=== PATIENT | male | born 1950 | race Hispanic/Latino ===

== ENCOUNTER 2023-10-06 08:24 | Emergency (ER) | payer OTHER, MEDICARE ==
[~2023-10-06] VITALS: Ht 160 cm; Wt 86.2 kg
[2023-10-06 08:45] LABS: BILIRUBIN,URINE NEGATIVE (NEGATIVE); COLOR,URINE LIGHT-YELLOW (YELLOW); GLUCOSE, URINE (UA) 30 mg/dL (NEGATIVE); KETONES,URINE NEGATIVE (NEGATIVE); LEUKOCYTE ESTERASE ,URINE 500 Leu/uL (NEGATIVE); NITRATE,URINE NEGATIVE (NEGATIVE); OCCULT BLOOD,URINE SMALL (NEGATIVE); PROTEIN,URINE 70 mg/dL (NEGATIVE); UROBILINOGEN,URINE 0.2 mg/dL (0.2-1.0)
[2023-10-06 08:49] LABS: ADD UA MICROSCOPIC YES; APPEARANCE,URINE HAZY (CLEAR)
[2023-10-06 08:54] LABS: BACTERIA,URINE FEW /HPF (None Seen); MUCUS,URINE RARE LPF (None Seen); RBC,URINE >100 /HPF (0-1); WBC CLUMP MOD /HPF (0-1); WBC,URINE TNTC /HPF (0-1); YEAST,URINE BUDDING MOD /HPF (None Seen)
[2023-10-06 08:59] LABS: BASOPHILS # (AUTO) 0.04 K/uL (0.00-0.20); BASOPHILS % (AUTO) 0.3 % (0.0-5.0); EOSINOPHILS # (AUTO) 0.22 K/uL (0.00-0.70); EOSINOPHILS % (AUTO) 1.9 % (0.0-8.0); HEMATOCRIT 35.9 % (42-54); IMMATURE GRANULOCYTE ABSOLUTE 0.03 K/uL (0-1); LYMPHOCYTES # (AUTO) 1.2 K/uL (1.0-4.8); LYMPHOCYTES % (AUTO) 10.3 % (21.0-51.0); MEAN CORPUSCULAR HEMOGLOBIN 28.5 pg (27.0-33.0); MEAN CORPUSCULAR VOLUME 83.9 fL (79-99); MONOCYTES # (AUTO) 0.6 K/uL (0.1-1.0); MONOCYTES % (AUTO) 4.9 % (3.0-13.0); NEUTROPHILS # (AUTO) 9.8 K/uL (1.8-7.7); NEUTROPHILS % (AUTO) 82.3 % (40.0-77.0); PLATELET COUNT (AUTO) 232 K/uL (130-400); RED BLOOD CELL COUNT(AUTO) 4.28 MIL/uL (4.50-6.20); RED CELL DISTRIBUTION WIDTH 12.6 % (11.0-15.5); WHITE BLOOD COUNT (AUTO) 11.9 K/uL (4.8-10.8)
[2023-10-06] MEDS ORDERED: CLOTRIMAZOLE/BETAMETHASONE DIP 45 GM CREAM.GM. TP ONE (09:00)
[2023-10-06 09:20] LABS: CREATININE 2.9 mg/dL (0.5-1.3); POTASSIUM 4.5 mmol/L (3.5-5.1)
[2023-10-06 09:24] LABS: BILIRUBIN,TOTAL 0.3 mg/dL (0.2-1.0); MAGNESIUM 1.9 mg/dL (1.80-2.40); TOTAL PROTEIN, SERUM 6.8 g/dL (6.0-8.3)
[2023-10-06] MEDS: CEFTRIAXONE 1G VIAL IVPB ONE (10:03)
[2023-10-06] MEDS ORDERED: CEFU250T87 PO (11:03)
[2023-10-06] MEDS ORDERED: CLOT15CR5 TP (11:05)
[2023-10-06 13:04] VITALS: BP 128/70; PULSE 55; RESP 16; O2SAT 95
== END 2023-10-06 13:04 | disposition home or self-care (01) ==
LOC: EDH 08:24 → EDBD 08:24 → EDH 13:04
DX: T83.090A Other mechanical complication of cystostomy catheter, initial encounter (principal); N39.0 Urinary tract infection, site not specified; R07.89 Other chest pain; E11.22 Type 2 diabetes mellitus with diabetic chronic kidney disease; N18.9 Chronic kidney disease, unspecified; X58.XXXA Exposure to other specified factors, initial encounter; Y93.89 Activity, other specified; Y92.89 Other specified places as the place of occurrence of the external cause; Y99.8 Other external cause status
CPT/HCPCS: 99285; 96365; 71045; 83735; 84484 ×3; 80053; 85025; 87040 ×2; 87077; 87088; 87186; 83605; 81001; 36415; 51702; 93005; J0696

== ENCOUNTER 2024-02-28 04:58 | Observation (INO) | payer OTHER, MEDICARE ==
[~2024-02-28] VITALS: Ht 162.6 cm; Wt 91.6 kg
[~2024-02-28 04:58] MED LIST: CEFU250T87 PO; CLOT15CR5 TP
[2024-02-28 06:06] LABS: CREATININE 3.9 mg/dL (0.5-1.3); POTASSIUM 4.6 mmol/L (3.5-5.1)
[2024-02-28 06:08] LABS: APPEARANCE,URINE TURBID (CLEAR); BILIRUBIN,URINE NEGATIVE (NEGATIVE); GLUCOSE, URINE (UA) NEGATIVE (NEGATIVE); KETONES,URINE NEGATIVE (NEGATIVE); LEUKOCYTE ESTERASE ,URINE 500 Leu/uL (NEGATIVE); NITRATE,URINE NEGATIVE (NEGATIVE); OCCULT BLOOD,URINE MODERATE (NEGATIVE); PROTEIN,URINE 300 mg/dL (NEGATIVE); UROBILINOGEN,URINE 0.2 mg/dL (0.2-1.0)
[2024-02-28 06:10] LABS: ADD UA MICROSCOPIC YES; COLOR,URINE YELLOW (YELLOW)
[2024-02-28 06:14] LABS: BASOPHILS # (AUTO) 0.02 K/uL (0.00-0.20); BASOPHILS % (AUTO) 0.2 % (0.0-5.0); EOSINOPHILS # (AUTO) 0.09 K/uL (0.00-0.70); EOSINOPHILS % (AUTO) 0.9 % (0.0-8.0); HEMATOCRIT 39.6 % (42-54); IMMATURE GRANULOCYTE ABSOLUTE 0.03 K/uL (0-1); LYMPHOCYTES # (AUTO) 1.2 K/uL (1.0-4.8); LYMPHOCYTES % (AUTO) 11.9 % (21.0-51.0); MEAN CORPUSCULAR HEMOGLOBIN 28.4 pg (27.0-33.0); MEAN CORPUSCULAR HGB CONC 33.6 g/dL (32.0-36.0); MEAN CORPUSCULAR VOLUME 84.4 fL (79-99); MONOCYTES # (AUTO) 0.6 K/uL (0.1-1.0); MONOCYTES % (AUTO) 6.1 % (3.0-13.0); NEUTROPHILS # (AUTO) 8.1 K/uL (1.8-7.7); NEUTROPHILS % (AUTO) 80.6 % (40.0-77.0); PLATELET COUNT (AUTO) 243 K/uL (130-400); RED BLOOD CELL COUNT(AUTO) 4.69 MIL/uL (4.50-6.20); RED CELL DISTRIBUTION WIDTH 13.6 % (11.0-15.5); WHITE BLOOD COUNT (AUTO) 10.1 K/uL (4.8-10.8)
[2024-02-28 06:29] LABS: BACTERIA,URINE Many /HPF (None Seen); WBC,URINE TNTC /HPF (0-1)
[2024-02-28 06:30] LABS: SQUAMOUS EPITHELIAL CELL,UR None Seen /HPF (0-2)
[2024-02-28] MEDS ORDERED: MEROPENEM 1 GM in 0.9%NACL 100ML 100 ML IV SCH (07:00)
[2024-02-28] MEDS: 0.9% NACL 500ML IV.SOLN 500 ML IV ONE (07:01)
[2024-02-28] MEDS: MEROPENEM 1 GM VIAL IVPB ONE (07:02)
[2024-02-28] MEDS ORDERED: PoTASSium chloRIDE 20MEQ/100ML 100 ML IV PRN (10:00)
[2024-02-28] MEDS ORDERED: PoTASSium chl 10% ELIXIR 20MEQ 20 MEQ/15 ML UDCUP PO PRN (10:00)
[2024-02-28] MEDS ORDERED: MAGNESIUM 2GM PREMIX 50ML 50 ML IV PRN (10:00)
[2024-02-28] MEDS ORDERED: PoTASSium chloRIDE 20MEQ ER 20 MEQ ERTAB PO PRN (10:00)
[2024-02-28] MEDS ORDERED: ondanSETRON 4MG INJ IVP PRN (11:00)
[2024-02-28] MEDS: INSULIN humuLIN R 100 UNIT/ML 3ML SQ SCH (11:30)
[2024-02-28] MEDS ORDERED: hydrALAZine 20MG/ML VIAL IV PRN (15:30)
[2024-02-28] MEDS: amLODIPine 5 MG TAB PO ONE (16:04)
[2024-02-28] MEDS ORDERED: MEROPENEM 500 MG in 0.9%NACL 100ML 100 ML IV SCH (19:00)
[2024-02-28 20:00] VITALS: BP 170/82; PULSE 67; RESP 18; TEMP 98.4
[2024-02-28] MEDS ORDERED: COMPOUND IV MISC 1 EACH IVSOLN MISC PRN (20:30)
[2024-02-28 21:00] VITALS: O2SAT 97
[2024-02-28] MEDS: MEROPENEM 500 MG in 0.9%NACL 100ML 100 ML IV SCH (21:06)
[2024-02-28] MEDS ORDERED: AMLO-257 PO (22:48)
[2024-02-28] MEDS ORDERED: AMAN100C14 PO (22:48)
[2024-02-28] MEDS ORDERED: FINA5TAB41 PO (22:48)
[2024-02-28] MEDS ORDERED: NYST15PO4 TP (22:48)
[2024-02-28] MEDS ORDERED: MULT-1367 PO (22:48)
[2024-02-28] MEDS ORDERED: PROP10TA10 PO (22:48)
[2024-02-28] MEDS ORDERED: TAMS-1 PO (22:48)
[2024-02-28] MEDS ORDERED: FLUO20TA29 PO (22:48)
[2024-02-28] MEDS ORDERED: CARB1TAB41 PO (22:48)
[2024-02-28] MEDS ORDERED: SENN8.6T32 PO (22:48)
[2024-02-28] MEDS ORDERED: ASPI-1443 PO (22:48)
[2024-02-28] MEDS ORDERED: FAMO-290 PO (22:48)
[2024-02-29] VITALS: BP 146/82; PULSE 69; RESP 18; TEMP 98.4
[2024-02-29 04:14] VITALS: BP 150/79; PULSE 70; RESP 18; TEMP 98.6
[2024-02-29 05:43] LABS: BASOPHILS # (AUTO) 0.04 K/uL (0.00-0.20); BASOPHILS % (AUTO) 0.4 % (0.0-5.0); EOSINOPHILS # (AUTO) 0.31 K/uL (0.00-0.70); EOSINOPHILS % (AUTO) 3.4 % (0.0-8.0); HEMATOCRIT 37.2 % (42-54); IMMATURE GRANULOCYTE ABSOLUTE 0.04 K/uL (0-1); LYMPHOCYTES # (AUTO) 1.9 K/uL (1.0-4.8); LYMPHOCYTES % (AUTO) 21.1 % (21.0-51.0); MEAN CORPUSCULAR HEMOGLOBIN 28.4 pg (27.0-33.0); MEAN CORPUSCULAR HGB CONC 32.5 g/dL (32.0-36.0); MEAN CORPUSCULAR VOLUME 87.3 fL (79-99); MONOCYTES # (AUTO) 0.8 K/uL (0.1-1.0); MONOCYTES % (AUTO) 8.4 % (3.0-13.0); NEUTROPHILS % (AUTO) 66.3 % (40.0-77.0); PLATELET COUNT (AUTO) 196 K/uL (130-400); RED BLOOD CELL COUNT(AUTO) 4.26 MIL/uL (4.50-6.20); RED CELL DISTRIBUTION WIDTH 13.7 % (11.0-15.5); WHITE BLOOD COUNT (AUTO) 9.1 K/uL (4.8-10.8)
[2024-02-29 06:10] LABS: CREATININE 3.4 mg/dL (0.5-1.3); MAGNESIUM 1.9 mg/dL (1.80-2.40)
[2024-02-29 08:00] VITALS: BP 143/70; PULSE 72; RESP 18; TEMP 98; O2SAT 97
[2024-02-29] MEDS: amLODIPine 5 MG TAB PO SCH (09:28)
[2024-02-29] MEDS: tamSULOsin HCL 0.4 MG CAP.ER.24H PO SCH (09:28)
[2024-02-29] MEDS: FAMOTIDINE 20MG VIAL IV SCH (09:28)
[2024-02-29 11:49] VITALS: BP 164/76; PULSE 70; RESP 18; TEMP 98.2
[2024-02-29] MEDS: acetaMINOPHEN 325 MG TAB PO PRN (12:23)
[2024-02-29] MEDS ORDERED: CEFD300C3 PO (12:25)
[2024-02-29 16:00] VITALS: BP 116/88; PULSE 75; RESP 18; TEMP 98
[2024-02-29 16:58] LABS: HEMOGLOBIN A1C 9.5 % (4.0-6.0)
[2024-02-29] MEDS ORDERED: SENNOSIDES 8.6 MG TABLET PO SCH (21:00)
[2024-02-29] MEDS ORDERED: PROPRANOLOL HCL 10 MG TAB PO SCH (21:00)
[2024-02-29] MEDS ORDERED: CARBIDOPA LEVO PO SCH (21:00)
[2024-03-01] MEDS ORDERED: finaSTERide 5 MG TABLET PO SCH (09:00)
[2024-03-01] MEDS ORDERED: NYSTatin 15 GM POWDER TP SCH (09:00)
[2024-03-01] MEDS ORDERED: amLODIPine 5 MG TAB PO SCH (09:00)
[2024-03-01] MEDS ORDERED: ASPIRIN 81 MG EC TAB PO SCH (09:00)
[2024-03-01] MEDS ORDERED: MULTIVITAMIN TABLET PO SCH (09:00)
[2024-03-01] MEDS ORDERED: AMANTADINE 100 MG PO SCH (09:00)
[2024-03-01] MEDS ORDERED: NON-FORMULARY MEDICATION 1 EACH (Famotidine 1 TAB) PO SCH (09:00)
[2024-03-01] MEDS ORDERED: FLUOXETINE HCL 20 MG PO SCH (09:00)
== END 2024-02-29 17:20 | disposition still patient (30) ==
LOC: EDH 04:58 → INTOOBSV 08:34 → EDHIP 08:34 → 3BH 21:00
PROVIDERS: ADMIT Internal Medicine; ATTEND Internal Medicine
DX: T83.090A Other mechanical complication of cystostomy catheter, initial encounter (principal); R33.8 Other retention of urine; N17.9 Acute kidney failure, unspecified; I12.9 Hypertensive chronic kidney disease with stage 1 through stage 4 chronic kidney disease, or unspecified chronic kidney disease; E11.22 Type 2 diabetes mellitus with diabetic chronic kidney disease; N18.9 Chronic kidney disease, unspecified; F41.9 Anxiety disorder, unspecified; F20.9 Schizophrenia, unspecified; R53.81 Other malaise; N39.0 Urinary tract infection, site not specified; B96.20 Unspecified Escherichia coli [E. coli] as the cause of diseases classified elsewhere; K21.9 Gastro-esophageal reflux disease without esophagitis; N40.0 Benign prostatic hyperplasia without lower urinary tract symptoms; I25.10 Atherosclerotic heart disease of native coronary artery without angina pectoris; G20.A1 Parkinson's disease without dyskinesia, without mention of fluctuations; F02.80 Dementia in other diseases classified elsewhere, unspecified severity, without behavioral disturbance, psychotic disturbance, mood disturbance, and anxiety; Z79.899 Other long term (current) drug therapy; Y73.8 Miscellaneous gastroenterology and urology devices associated with adverse incidents, not elsewhere classified
CPT/HCPCS: 96365; 96366 ×3; 99284; 80048 ×2; 85025 ×2; 87070; 87076; 87086 ×6; 87186 ×5; 82948 ×7; 81001; 36415 ×2; 96375; 83036; 83735; J7040; J2185 ×3; G0378 ×4; J3490; J1815

== ENCOUNTER 2024-04-01 13:54 | Emergency (ER) | payer MEDICARE, OTHER ==
[~2024-04-01 13:54] MED LIST changes: +AMAN100C14 PO; +AMLO-257 PO; +ASPI-1443 PO; +CARB1TAB41 PO; +CEFD300C3 PO; -CEFU250T87 PO; +FAMO-290 PO; +FINA5TAB41 PO; +FLUO20TA29 PO; +MULT-1367 PO; +NYST15PO13 TP; +PROP10TA10 PO; +SENN8.6T32 PO; +TAMS-1 PO
[2024-04-01 14:44] LABS: BASOPHILS # (AUTO) 0.04 K/uL (0.00-0.20); BASOPHILS % (AUTO) 0.5 % (0.0-5.0); EOSINOPHILS # (AUTO) 0.38 K/uL (0.00-0.70); EOSINOPHILS % (AUTO) 4.8 % (0.0-8.0); HEMATOCRIT 39.9 % (42-54); IMMATURE GRANULOCYTE ABSOLUTE 0.03 K/uL (0-1); LYMPHOCYTES % (AUTO) 25.1 % (21.0-51.0); MEAN CORPUSCULAR HGB CONC 33.8 g/dL (32.0-36.0); MEAN CORPUSCULAR VOLUME 85.6 fL (79-99); MONOCYTES # (AUTO) 0.6 K/uL (0.1-1.0); MONOCYTES % (AUTO) 7.2 % (3.0-13.0); NEUTROPHILS # (AUTO) 4.9 K/uL (1.8-7.7); PLATELET COUNT (AUTO) 236 K/uL (130-400); RED BLOOD CELL COUNT(AUTO) 4.66 MIL/uL (4.50-6.20); RED CELL DISTRIBUTION WIDTH 13.2 % (11.0-15.5); WHITE BLOOD COUNT (AUTO) 7.9 K/uL (4.8-10.8)
[2024-04-01 15:09] LABS: CREATININE 3.3 mg/dL (0.5-1.3); POTASSIUM 4.6 mmol/L (3.5-5.1)
--- NOTE | 2024-04-01 15:17 | HMCIMG ---
Exam: NONCONTRAST CT BRAIN REASON: fall/headache. COMPARISON: None. TECHNIQUE: Images are obtained from vertex to the skull base. The exam was performed without IV contrast. FINDINGS: There are generous ventricles and sulci. There is decreased attenuation in the deep central white matter. These findings are consistent with atrophy. There are no acute appearing focal parenchymal lesions. There is no evidence of mass, intracranial hemorrhage or acute stroke. Posterior fossa and brainstem structures appear unremarkable. There are no abnormal fluid collections. Extra cranial soft tissues appear unremarkable as well. IMPRESSION: 1. Atrophy, no acute finding. CT was performed with one or more following dose reduction techniques: automated exposure control, adjustment of the mA and kv according to patient's size, or use of a iterative reconstruction technique.
--- NOTE | 2024-04-01 15:39 | HMCIMG ---
HIP UNILAT 2-3VW LEFT REASON: fall/hip pain TECHNIQUE: 3 views were obtained. FINDINGS: There is no evidence of fracture or dislocation. There is no joint effusion. The soft tissues appear unremarkable. There is no evidence of a radiopaque foreign body. IMPRESSION: No acute findings.
--- NOTE | 2024-04-01 15:49 | HMCIMG ---
HAND 3+VWS LT REASON: fall/hip pain TECHNIQUE: 3 views were obtained. 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 There is less pronounced osteoarthritis in the PIP joints. There are no visible fractures. Soft tissues appear unremarkable. IMPRESSION: No acute findings.
[2024-04-01] MEDS ORDERED: 0.9%NACL 1000ML 1,000 ML IV ONE (16:00)
--- NOTE | 2024-04-01 16:45 | ERN ---
General Chief Complaint: Hip Pain/Injury Stated Complaint: LEFT HIP PAIN SP FALL 4 DAYS AGO Time Seen by MD: 13:54 Time Seen by Midlevel: 13:54 Source: patient, EMS History of Present Illness Initial Comments 43-year-old male being brought in by EMS for evaluation of left hip pain following a mechanical ground level fall that occurred four days ago. Patient is being brought in from [facility] in [place]. Patient states that accidentally tripped four days ago and fell onto his left side. Denies head injury or loss of consciousness. Denies being on any blood thinners. His primary concern is that he is having pain to his left hip. He also reports a bruise to his left hand. On arrival he does report developing a headache and would like some Tylenol. Denies any other symptoms at this time. Allergies: Coded Allergies: No Known Drug Allergies (Unverified Allergy, Unknown, 10/06/23) Home Meds Active Scripts Cefdinir (Cefdinir) 300 Mg Capsule, 300 MG PO BID for 5 Days, #10 CAP Prov:MERARI DUMONT NP 02/29/24 Clotrimazole/Betamethasone Dip (Clotrimazole-Betamethasone Crm) 1 %-0.05 % Cream..g., 1 APPL TP BID for 15 Days, #30 G 0 Refills Prov:FRANKI OAKES MD 10/06/23 Reported Medications Carbidopa/Levodopa (Carbidopa-Levo ER 25-100 Tab) 25 Mg-100 Mg Tablet.er, 1 TAB PO BID for 30 Days, #60 TAB 0 Refills 02/28/24 Fluoxetine HCl (Fluoxetine HCl) 20 Mg Tablet, 1 TAB PO DAILY for 30 Days, #30 TAB 0 Refills 02/28/24 Famotidine (Famotidine) 10 Mg Tablet, 1 TAB PO DAILY for 30 Days, #30 TAB 0 Refills 02/28/24 Aspirin (Aspirin EC) 81 Mg Tablet.dr, 1 TAB PO DAILY for 30 Days, #30 TAB 0 Refills 02/28/24 Propranolol HCl (Propranolol HCl) 10 Mg Tablet, 10 MG PO BID, TAB 02/28/24 Sennosides (Senna) 8.6 Mg Tablet, 1 TAB PO HS for constipation for 25 Days, #100 TAB 0 Refills 02/28/24 Tamsulosin HCl (Flomax) 0.4 Mg Cap.er.24h, 0.4 MG PO HS, CAPSULE.DR 02/28/24 Amantadine HCl (Amantadine) 100 Mg Capsule, 1 CAP PO DAILY for 30 Days, #60 CAP 0 Refills 02/28/24 Finasteride (Finasteride) 5 Mg Tablet, 1 TAB PO DAILY for 30 Days, #30 TAB 0 Refills 02/28/24 Amlodipine Besylate (Amlodipine Besylate) 5 Mg Tablet, 1 TAB PO DAILY for 30 Days, #30 TAB 0 Refills hold for systolic <100 , diastolic<60, pulse <60 02/28/24 Multivitamin (Multivitamin) 1 Each Tablet, 1 TAB PO DAILY for 30 Days, #30 TAB 0 Refills 02/28/24 Nystatin (Nystatin) 100,000 Unit/Gram Powder, 1 APPL TP DAILY for 7 Days, #60 GM 0 Refills apply to affected area(toes) 02/28/24 Past Medical History Past Medical History: Anxiety, CAD, Constipation, Dementia, Diabetes-Type II, GERD, Hypertension, Renal Disese Medical History Other: SCHIZOPHENIA, DRUG ABUSE, MUSCLE WASTING Past Surgical History: Unknown Surgical History Other: SUPRAPUBIC CATHETER Family History Family History: Negative Social History Social History: Negative ROS Dictation CONSTITUTIONAL: Negative except for HPI HEAD/FACE: Negative except for HPI EENT: Negative except for HPI RESPIRATORY: Negative except for HPI GASTROINTESTINAL/ABDOMINAL: Negative except for HPI GENITOURINARY: Negative except for HPI MUSCULOSKELETAL: Negative except for HPI INTEGUMENTARY: Negative except for HPI NEUROLOGICAL/PSYCH: Negative except for HPI HEMATOLOGIC/LYMPHATIC: Negative except for HPI All Systems Negative, Except as noted above. 13 point review of systems assessed and all negative except for above. Physical Exam Physical Exam Dictation Vital Signs reviewed General Appearance: Alert, oriented x 3, no acute distress, well developed, n ourished. Head and Face: non-traumatic. Eyes: PERRL, pink conjunctivas, eyelid no trauma, anterior chamber with arcus senilis. Ears: Pinnas intact and no signs of trauma or erythema ear canals clear and no discharge TM no erythema Nose: No discharge, no bleeding. Oropharynx: Mouth normal, tongue pink, pharynx clear,no erythema, tonsils no exudates, no abscesses noted, mucous membrane moist Neck: Supple, non-tender, no thyromegaly, no masses, no JVD, no bruits Breast:Deferred Chest:No tenderness, no crepitus, no paradoxical movement, no retractions Lungs:Clear, well-ventilated, symmetric, no rales, no wheezing, no rhonchi, no stridor, good breath sounds bilaterally Heart: Regular rate, regular rhythm, no murmur, no gallops Vascular: no peripheral edema, Abdomen: Soft, positive bowel sounds, nondistended, no guarding, nontender, no rebound, no masses no hepatomegaly, no splenomegaly, no Brar's sign, no hernias. Rectal: Deferred Genital: Deferred Neurological: Normal speech, motor function intact, sensory function intact Musculoskeletal: Neck nontender, full range of motion, back nontender, full range of motion, Extremities: nontender, full range of motion Skin: Color pink, dry, no turgor, no rash, no lacerations, no abrasions, no contusions. Lymphatic: Deferred Results Laboratory and Microbiology Lab and Micro Result Laboratory Tests Test 04/01/24 14:34 White Blood Count 7.9 K/uL (4.8-10.8) Red Blood Count 4.66 MIL/uL (4.50-6.20) Hemoglobin 13.5 g/dL (14.0-18.0) L Hematocrit 39.9 % (42-54) L Mean Corpuscular Volume 85.6 fL (79-99) Mean Corpuscular Hemoglobin 29.0 pg (27.0-33.0) Mean Corpuscular Hemoglobin Concent 33.8 g/dL (32.0-36.0) Red Cell Distribution Width 13.2 % (11.0-15.5) Platelet Count 236 K/uL (130-400) Mean Platelet Volume 8.5 fL (7.5-10.5) Immature Granulocyte % (Auto) 0.4 % (0-1) Neutrophils (%) (Auto) 62.0 % (40.0-77.0) Lymphocytes (%) (Auto) 25.1 % (21.0-51.0) Monocytes (%) (Auto) 7.2 % (3.0-13.0) Eosinophils (%) (Auto) 4.8 % (0.0-8.0) Basophils (%) (Auto) 0.5 % (0.0-5.0) Neutrophils # (Auto) 4.9 K/uL (1.8-7.7) Lymphocytes # (Auto) 2.0 K/uL (1.0-4.8) Monocytes # (Auto) 0.6 K/uL (0.1-1.0) Eosinophils # (Auto) 0.38 K/uL (0.00-0.70) Basophils # (Auto) 0.04 K/uL (0.00-0.20) Absolute Immature Granulocyte (auto 0.03 K/uL (0-1) Nucleated Red Blood Cells 0.0 % (0.0-0.19) Sodium Level 137 mmol/L (136-145) Potassium Level 4.6 mmol/L (3.5-5.1) Chloride Level 101 mmol/L (101-111) Carbon Dioxide Level 27 mmol/L (21-32) Blood Urea Nitrogen 33 mg/dL (7-18) H Creatinine 3.3 mg/dL (0.5-1.3) H Glomerular Filtration Rate Calc 19 mL/min (>90) Random Glucose 283 mg/dL (70-105) H Total Calcium 8.7 mg/dL (8.5-10.1) Labs Reviewed?: Yes MDM MDM: 43-year-old male being brought in by EMS for evaluation of left hip pain following a mechanical ground level fall that occurred four days ago. Patient is being brought in from [facility] in [place]. Patient states that accidentally tripped four days ago and fell onto his left side. Denies head injury or loss of consciousness. Denies being on any blood thinners. His primary concern is that he is having pain to his left hip. He also reports a bruise to his left hand. On arrival he does report developing a headache and would like some Tylenol. Denies any other symptoms at this time. On physical examination patient has mild tenderness over the left lateral hip however he has full range motion. There is a bruise to the left hand however patient has full range motion of the left wrist, left five digits, with normal capillary refill. Patient does report a headache on arrival. X-ray of the left hip and left hand show no acute fracture. A CT scan of the head was obtained to rule out any intracranial process. His CT scan is negative. His blood work is stable. Patient was road tested and is ambulatory without assistance with a normal gait. Patient will be discharged back to group home. Differential diagnosis: Fall, intracranial bleed, skull fracture, There are no social concerns with this patient. Prescription drug management Prescriptions will include: None Medical management and examination interpretation discussions were had by me with other qualified healthcare professionals as indicated for the patient's care. ED Course Orders Procedure Category Date Status Time Cbc With Differential LAB 04/01/24 Complete 13:58 Basic Metabolic Panel LAB 04/01/24 Complete 13:58 Ct Head/Brain W/O CT 04/01/24 Resulted Contrast 13:58 Hand 3+Vws Lt RAD 04/01/24 Resulted 13:58 Urinalysis Profile LAB 04/01/24 Logged 13:58 Hip Unilat 2-3vw Left RAD 04/01/24 Resulted 13:58 0.9%Nacl 1000ml (Ns PHA 04/01/24 Complete 1000ml) 16:00 Acetaminophen 500mg PHA 04/01/24 In Process Tab (Tylenol 500mg T 17:00 Current Medications Medications (Trade) Dose Ordered Sig/Yara Route PRN Reason Start Time Stop Time Status Last Admin Dose Admin Acetaminophen (TYLenol 500MG TAB) 1,000 mg ONCE ONCE PO 04/01/24 17:00 04/01/24 17:01 Sodium Chloride 1,000 ml @ 0 mls/hr ONCE ONCE IV 04/01/24 16:00 04/01/24 16:01 [place] [address] [place] [address] IMAGING REPORT Signed PATIENT: CHANDANA DRUMMOND MR#: [id number] : 1950 SEX: M AGE: 73 LOCATION: [facility] ORDER 1400 STATUS: [facility] REPORT#: [id number] SERVICE 1358 REASON: fall/hip pain ORDERING PHYSICIAN: DANA ALY PROCEDURE: HAND 3V LT - HAND 3+VWS LT HAND 3+VWS LT REASON: fall/hip pain TECHNIQUE: 3 views were obtained. 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 There is less pronounced osteoarthritis in the PIP joints. There are no visible fractures. Soft tissues appear unremarkable. IMPRESSION: No acute findings. DICTATED BY: KIMI POSEY MD DATE: 04/01/241545 ELECTRONICALLY SIGNED BY: KIMI POSEY MD DATE: 04/01/24 [address] [place] [id number] [id number] IMAGING REPORT Signed PATIENT: CHANDANA DRUMMOND MR#: [id number] : 1950 SEX: M AGE: 73 LOCATION: [facility] ORDER 99 STATUS: REG ER REPORT#: [id number] SERVICE 1354 REASON: fall/headache ORDERING PHYSICIAN: DANA ALY PROCEDURE: HEAD WO - CT HEAD/BRAIN W/O CONTRAST Exam: NONCONTRAST CT BRAIN REASON: fall/headache. COMPARISON: None. TECHNIQUE: Images are obtained from vertex to the skull base. The exam was performed without IV contrast. FINDINGS: There are generous ventricles and sulci. There is decreased attenuation in the deep central white matter. These findings are consistent with atrophy. There are no acute appearing focal parenchymal lesions. There is no evidence of mass, intracranial hemorrhage or acute stroke. Posterior fossa and brainstem structures appear unremarkable. There are no abnormal fluid collections. Extra cranial soft tissues appear unremarkable as well. IMPRESSION: 1. Atrophy, no acute finding. CT was performed with one or more following dose reduction techniques: automated exposure control, adjustment of the mA and kv according to patient's size, or use of a iterative reconstruction technique. DICTATED BY: KIMI POSEY MD DATE: 04/01/241514 ELECTRONICALLY SIGNED BY: KIMI POSEY MD DATE: 04/01/241516 [place] [address] [id number] IMAGING REPORT Signed PATIENT: HCANDANA DRUMMOND MR#: [id number] : 1950 SEX: M AGE: 73 LOCATION: [facility] ORDER 99 STATUS: REG ER [facility] REPORT#: [id number] SERVICE 1351 REASON: fall/hip pain ORDERING PHYSICIAN: DANA ALY PROCEDURE: HIP U 2V L - HIP UNILAT 2-3VW LEFT HIP UNILAT 2-3VW LEFT REASON: fall/hip pain TECHNIQUE: 3 views were obtained. FINDINGS: There is no evidence of fracture or dislocation. There is no joint effusion. The soft tissues appear unremarkable. There is no evidence of a radiopaque foreign body. IMPRESSION: No acute findings. DICTATED BY: KIMI POSEY MD DATE: 04/01/241535 ELECTRONICALLY SIGNED BY: KIMI POSEY MD DATE: 04/01/241538 DX & DISP Disposition: Discharge Departure Impression: Primary Impression: Fall Additional Impressions: Contusion of left hip, Contusion of left hand Condition: Stable Additional Instructions: Your CT scan of the brain is negative for any acute injury. Your x-ray of the left hip and left hand are negative for any fracture. Your blood work today is stable. Follow up with your primary care doctor for further evaluation in 2-3 days. Return to the ER for any new or worsening symptoms Referrals: SELF,REFERRAL (PCP) Time of Disposition: 16:42 I have reviewed the case, and I agree with, Diagnosis and Plan I performed the substantive portion of the visit. I have reviewed and personally made and approve the management plan that is documented in the note by myself or the APRYL. I acknowledge for responsibility for the patient's management plan. DANA ALY Apr 01, 2024 16:45
--- NOTE | 2024-04-01 16:57 | NUR ---
[facility] CONTACTED TO PROVIDE TRANSPORTATION FOR PATIENT
[2024-04-01 17:08] VITALS: O2SAT 98
[2024-04-01] MEDS: acetaMINOPHEN 500 MG TABLET PO ONE (17:08)
[2024-04-01 17:43] VITALS: BP 147/74; PULSE 99; RESP 16; TEMP 98.2
--- NOTE | 2024-04-01 17:55 | NUR ---
PER FAUSTO DAWN, [facility] WILL BE PICKING UP PATIENT, INDIGO [phone]
== END 2024-04-01 18:34 ==
LOC: EDH 13:54
DX: S70.02XA Contusion of left hip, initial encounter (principal); S60.222A Contusion of left hand, initial encounter; R51.9 Headache, unspecified; E11.9 Type 2 diabetes mellitus without complications; F03.94 Unspecified dementia, unspecified severity, with anxiety; I10 Essential (primary) hypertension; I25.10 Atherosclerotic heart disease of native coronary artery without angina pectoris; K21.9 Gastro-esophageal reflux disease without esophagitis; Z79.82 Long term (current) use of aspirin; Z79.899 Other long term (current) drug therapy; W01.0XXA Fall on same level from slipping, tripping and stumbling without subsequent striking against object, initial encounter; Y93.89 Activity, other specified; Y92.89 Other specified places as the place of occurrence of the external cause; Y99.8 Other external cause status
CPT/HCPCS: 36415; 70450; 73130; 73502; 80048; 85025; 99284